=== PATIENT | female | born 1965 | race Caucasian/White ===

== ENCOUNTER 2022-03-05 23:34 | Emergency (ER) | payer OTHER | END 2022-03-06 03:17 | disposition home or self-care (01) | LOC: FER 23:34 | DX: S61.211A Laceration without foreign body of left index finger without damage to nail, initial encounter (principal); Z23 Encounter for immunization; Z88.2 Allergy status to sulfonamides; W45.8XXA Other foreign body or object entering through skin, initial encounter; Y92.009 Unspecified place in unspecified non-institutional (private) residence as the place of occurrence of the external cause | CPT/HCPCS: 90471; 90715 ==